=== PATIENT | female | born 1955 | race Caucasian/White ===

== ENCOUNTER 2016-06-17 07:18 | Day surgery (SDC) | payer OTHER ==
[~2016-06-17] VITALS: Ht 144.8 cm; Wt 92.8 kg
[~2016-06-17 07:18] MED LIST: GLIPIZIDE PO; HUMALOG SQ; LANT3I SC; LOSARTAN PO; METFORMIN PO; METOPROLOL PO
[2016-06-17 08:10] VITALS: Ht 144.8 cm; Wt 92.8 kg
[2016-06-17 08:19] VITALS: BP 109/67; PULSE 81; RESP 18
[2016-06-17] MEDS ORDERED: CIPROFLOXACIN 400MG/D5W 200 ML ONE (08:35)
[2016-06-17] MEDS ORDERED: PHENYLephrine (100 MCG/ML) 5ML SYG ONE (08:49)
[2016-06-17] MEDS ORDERED: FENTAnyl 50 MCG/ML VIAL ONE (08:49)
[2016-06-17] MEDS ORDERED: PROPOFOL 20 ML ONE (08:49)
[2016-06-17 09:40] VITALS: BP 144/83; PULSE 82; RESP 18
--- NOTE | 2016-06-17 14:56 | GILP ---
DATE OF PROCEDURE: PROCEDURE: Banding of esophageal varicose vein. INDICATION: A 64-year-old female undergoing this procedure for surveillance of varicose vein and po ssible banding. The risk of the procedure, related and unrelated complications, anesthetic risks, a lternatives discussed and informed consent was obtained. DESCRIPTION OF PROCEDURE: The patient was brought to the GI lab, sedated by the anesthesiologist. After optimal sedation, scope was passed with much ease into esophagus which showed grade 4 varicose vein and diffuse in nature in the distal part of the esophagus. Stomach mucosa revealed congestive gastropathy. There was no gastric varicose vein on retroversion. The patient had multiple superfi cial antral ulcers. Duodenum, first and second part was within normal limits. Scope was removed, 7 shooter was attached to the tip of the scope, patient also was given Cipro. Varicose veins were feliciano ccessfully banded, 4 bands were used to band 4 columns of varicose vein. No varicose vein was left behind. Scope was removed with excellent patient tolerance. No bleeding was seen. 1. Grade 4 diffuse large varicose veins successfully banded. Total number of bands used to 4. Four columns of varicose veins were successfully banded without any bleeding. 2. Congestive gastropathy. 3. Multiple antral superficial gastric ulcers. 4. Normal duodenum. 5. No gastric varicose vein identified. PLAN: Continue PPI at least for 3 months. Will repeat endoscopy after 3 months to evaluate those va ricose veins. The patient should be followed by the copying machine mechanic for the treatment of Hepatitis C. Dictated By: LANETTE PUGA/HARSHA Conf#: [id number] DID#: [id number] CC: GUNNAR MARES;*EndCC*
== END 2016-06-17 09:47 | disposition home or self-care (01) ==
LOC: GIL 07:18
PROVIDERS: ATTEND Internal Medicine Gastroenterology
DX: I85.00 Esophageal varices without bleeding (principal); K31.9 Disease of stomach and duodenum, unspecified; K31.89 Other diseases of stomach and duodenum; E11.9 Type 2 diabetes mellitus without complications
CPT/HCPCS: 43244; 82962; J0744; J2370; J3010; Z7610

== ENCOUNTER 2016-10-26 09:29 | Day surgery (SDC) | payer OTHER ==
[~2016-10-26] VITALS: Ht 147.3 cm; Wt 87.7 kg
[2016-10-26 09:47] VITALS: Ht 147.3 cm; Wt 87.7 kg
[2016-10-26] MEDS ORDERED: PROTONIX PO (10:03)
[2016-10-26 10:26] VITALS: BP 110/69; PULSE 82; RESP 27
[2016-10-26] MEDS ORDERED: PROPOFOL 40 ML ONE (10:37)
[2016-10-26] MEDS ORDERED: LIDOCAINE 2% (SDV) 5 ML INJ ONE (10:37)
[2016-10-26] MEDS ORDERED: CIPROFLOXACIN 400MG/D5W 200 ML ONE (10:47)
--- NOTE | 2016-10-26 11:00 | OPPN ---
Date/Time of Note Date/Time of Note DATE: 10/26/16 TIME: 10:59 Operative Report Preoperative Diagnosis Surveillance for her varicose veins Postoperative Diagnosis Banding of esophageal varicose veins antral benign ulcer Operation/Procedure Performed 1. Banding of the esophageal varicose vein for columns were successfully banded 2. Superficial diffuse antral ulcer benign looking for biopsies obtained 3. Submucosal lesion 2 cm in diameter at the junction of the proximal and midportion of the esophagus Provider: LANETTE OLEA MD Estimated blood loss: none Transfusion Required: no Specimen: none Grafts/Implants: none Complications: no LANETTE OLEA MD Oct 26, 2016 11:00
[2016-10-26 11:35] VITALS: BP 145/70; PULSE 82; RESP 14
--- NOTE | 2016-10-26 12:04 | GILP ---
DATE OF PROCEDURE: 10/26/2016 PROCEDURE PERFORMED: Esophagogastroduodenoscopy with banding and biopsy. INDICATIONS FOR PROCEDURE: A 61-year-old female undergoing this procedure for surveillance of varicose veins. She also had gastric ulcer. The risks of the procedure, related complications, anesthetic risks, alternatives discussed. Informed consent was obtained. DESCRIPTION OF PROCEDURE: The patient was brought to the GI lab, sedated by Dr. Persaud. After optimal sedation, scope was passed with much ease into the esophagus. Grade 3-4 varicose vein identified in the distal part of the esophagus. Some of them had positive signs. Stomach mucosa revealed gastritis. In the antrum, diffuse superficial ulcer identified. Four biopsies obtained, this was totally benign looking. Duodenum, 1st and 2nd part was within normal limits. The ampulla was normal. The rectum was also normal except for gastritis. No varicose vein identified. The scope was straightened out and removed with good patient tolerance. At this point, patient was given Cipro. was attached to the tip of the scope. Scope was reintroduced. The 4 columns of varicose vein successfully banded. No varicose vein was left behind. In the proximal part of the esophagus between the proximal and the mid portion, there was a submucosal lesion 2 cm in diameter. IMPRESSION: 1. Submucosal lesion 2 cm in diameter. 2. Diffuse varicose vein with positive successfully banded. 3. Superficial antral ulcer. 4. Gastritis. 5. Normal duodenum. PLAN: Review the histopathology. Patient may need EUS to evaluate the submucosal lesion. We will do another EGD after 5-6 months to evaluate the varicose veins. Dictated By: Sukhjinder Dumont MD /basia/steven /Document#: [id number] CC: Sukhjinder Dumont MD; Dr. Dre Red;*[facility]*
== END 2016-10-26 14:05 | disposition home or self-care (01) ==
LOC: GIL 09:29
PROVIDERS: ATTEND Internal Medicine Gastroenterology
DX: I85.00 Esophageal varices without bleeding (principal); K29.50 Unspecified chronic gastritis without bleeding; K29.70 Gastritis, unspecified, without bleeding; K25.9 Gastric ulcer, unspecified as acute or chronic, without hemorrhage or perforation; E11.9 Type 2 diabetes mellitus without complications; E78.5 Hyperlipidemia, unspecified; E66.01 Morbid (severe) obesity due to excess calories; Z68.41 Body mass index [BMI] 40.0-44.9, adult
CPT/HCPCS: 43239; 82962; 88305; 88312; J0744; Z7610

== ENCOUNTER 2017-06-07 06:40 | Day surgery (SDC) | END 2017-06-07 10:34 | disposition home or self-care (01) ==

== ENCOUNTER 2018-01-24 09:23 | Day surgery (SDC) | END 2018-01-24 11:53 | disposition home or self-care (01) ==

== ENCOUNTER 2018-10-31 08:35 | Day surgery (SDC) | payer OTHER ==
[~2018-10-31] VITALS: Ht 124.5 cm; Wt 93.6 kg
[~2018-10-31 08:35] MED LIST changes: +PROTONIX PO
[2018-10-31 09:03] VITALS: Ht 124.5 cm; Wt 93.6 kg
[2018-10-31 10:12] VITALS: BP 129/77; PULSE 74; RESP 22
== END 2018-10-31 11:59 | disposition home or self-care (01) ==
LOC: GIL 08:35
PROVIDERS: ATTEND Internal Medicine Gastroenterology
DX: I85.00 Esophageal varices without bleeding (principal); K31.9 Disease of stomach and duodenum, unspecified; K29.50 Unspecified chronic gastritis without bleeding; E11.9 Type 2 diabetes mellitus without complications; I10 Essential (primary) hypertension; Z79.84 Long term (current) use of oral hypoglycemic drugs; Z79.4 Long term (current) use of insulin
CPT/HCPCS: 43239; 43244; 82962; J0744; Z7610; 88305; 88312